=== PATIENT | male | born 1960 | race Caucasian/White ===

== ENCOUNTER 2018-02-11 17:56 | Inpatient (IN) | payer MEDICAID ==
[~2018-02-11] VITALS: Ht 177.8 cm; Wt 77.6 kg
[2018-02-11] MEDS ORDERED: SODIUM CHLORIDE 0.9% 1,000 ML IV ONE (18:23)
[2018-02-11 19:04] LABS: BASOPHILS % 0.3 % (0.0-2.0); EOSINOPHILS % 1.4 % (0.0-5.0); HEMATOCRIT. 33.1 % (42.0-52.0); HEMOGLOBIN. 11.5 g/dL (14.0-18.0); LYMPHOCYTES % 7.6 % (20.0-50.0); MEAN CORPUSCULAR HEMOGLOBIN 32.2 pg (28.0-32.0); MEAN PLATELET VOLUME 7.7 fl (7.4-10.4); MONOCYTES % 5.2 % (2.0-8.0); NEUTROPHILS % 85.5 % (40.0-76.0); PLATELET 304 x1000/uL (130-400); RED BLOOD CELL COUNT 3.56 mill/uL (4.7-6.1); RED CELL DISTRIBUTION WIDTH 13.7 % (11.6-14.6)
[2018-02-11 19:08] LABS: CHLORIDE 93 mEq/L (98-107)
[2018-02-11 19:12] LABS: ETHANOL BLOOD < 10 mg/dL; INR 1.1; PROTHROMBIN TIME 11.4 sec (9.4-11.6)
[2018-02-11] MEDS ORDERED: KCL 20MEQ/100ML PREMIX 100 ML IV ONE (19:30)
[2018-02-11] MEDS ORDERED: POTASSIUM CHLORIDE 20MEQ TABLET SR PO ONE (19:30)
[2018-02-11] MEDS ORDERED: ACETAMINOPHEN 325MG TABLET PO PRN (21:30)
[2018-02-11] MEDS ORDERED: DOCUSATE SODIUM 100MG CAPSULE PO PRN (21:30)
[2018-02-11] MEDS ORDERED: ONDANSETRON HCL 4MG/2ML VIAL IV PRN (21:30)
[2018-02-11] MEDS ORDERED: IPRATROPIUM/ALBUTEROL 0.5-3(2.5)MG/3ML NEB INH PRN (21:30)
[2018-02-11] MEDS ORDERED: CEFTRIAXONE 1 G PREMIX 50 ML IV SCH (21:30)
[2018-02-11] MEDS ORDERED: MAGNESIUM/ALUMINUM HYDROXIDE/SIMETHICONE 30ML UDC PO PRN (21:30)
[2018-02-11 22:38] VITALS: BP 164/100
[2018-02-12] VITALS (31 sets, daily range): BP systolic 99–176; BP diastolic 65–126
[2018-02-12] MEDS ORDERED: CEFTRIAXONE 1 G PREMIX 50 ML IV SCH
[2018-02-12 00:13] LABS: CHLORIDE 97 mEq/L (98-107)
[2018-02-12 00:24] LABS: CREATINE KINASE MB FRACTION 17.4 ng/mL (0.5-3.6)
[2018-02-12 00:34] LABS: CREATINE KINASE 3051 IU/L (39-308)
[2018-02-12] MEDS ORDERED: BENZ0.5T3 PO (01:48)
[2018-02-12] MEDS ORDERED: PANT40TA4 PO (01:48)
[2018-02-12] MEDS ORDERED: DIVA500T PO ×2 (01:48)
[2018-02-12] MEDS ORDERED: HALO5TAB PO (01:48)
[2018-02-12] MEDS ORDERED: RISP3TAB13 PO ×2 (01:48)
[2018-02-12] MEDS ORDERED: HALO10TA13 PO (01:48)
[2018-02-12] MEDS ORDERED: ALBU18HF2 IH (01:48)
[2018-02-12] MEDS ORDERED: BENZ1TAB7 PO (01:48)
[2018-02-12] MEDS ORDERED: TIOT18CA3 IH (01:48)
[2018-02-12] MEDS ORDERED: FERR325T6 PO (01:48)
[2018-02-12] MEDS: SODIUM CHLORIDE 0.9% 1,000 ML IV SCH ×2 (01:50→11:15)
[2018-02-12] MEDS ORDERED: POTASSIUM CHLORIDE 20MEQ TABLET SR PO SCH (05:46)
[2018-02-12 06:34] LABS: BASOPHILS % 0.3 % (0.0-2.0); HEMATOCRIT. 35.8 % (42.0-52.0); HEMOGLOBIN. 12.5 g/dL (14.0-18.0); LYMPHOCYTES % 9.8 % (20.0-50.0); MEAN CORPUSCULAR HEMOGLOBIN 32.4 pg (28.0-32.0); MEAN CORPUSCULAR VOLUME 92.9 fL (80.0-94.0); MEAN PLATELET VOLUME 8.4 fl (7.4-10.4); MONOCYTES % 8.4 % (2.0-8.0); NEUTROPHILS % 80.5 % (40.0-76.0); PLATELET 327 x1000/uL (130-400); RED BLOOD CELL COUNT 3.85 mill/uL (4.7-6.1); RED CELL DISTRIBUTION WIDTH 13.6 % (11.6-14.6)
[2018-02-12 06:56] LABS: CHLORIDE 101 mEq/L (98-107)
[2018-02-12 07:04] LABS: LDL CHOLESTEROL 39 mg/dL (5-100)
[2018-02-12 07:06] LABS: HDL CHOLESTEROL 76 mg/dL (40-59)
[2018-02-12 07:08] LABS: CREATINE KINASE MB FRACTION 16.4 ng/mL (0.5-3.6)
[2018-02-12 07:17] LABS: CREATINE KINASE 2998 IU/L (39-308)
[2018-02-12 07:25] LABS: BG BASE EXCESS -2.5 mmol/L (-2.0-2.0); BG CARBOXYHEMOGLOBIN 1.7 % (0.5-1.5); BG HCO3 ACT 22.9 mmol/L (22.0-26.0); BG METHEMOGLOBIN 0.3 % (0.0-1.5); BG PCO2 41.8 mmHg (35.0-45.0); BG PH 7.357 (7.350-7.450); BG PO2 163.2 mmHg (75.0-100.0); BG SAMPLE SITE RIGHT BRACHIAL; BG TOTAL HEMOGLOBIN 13.5 g/dL (12.0-18.0); BG VENT MODE MASK - SIMPLE
[2018-02-12] MEDS ORDERED: DIVALPROEX SODIUM 500MG ER TABLET PO SCH (09:00)
[2018-02-12] MEDS ORDERED: PIPERACILLIN/TAZ 3.375G PREMIX 50 ML IV SCH (09:30)
[2018-02-12] MEDS: AZITHROMYCIN 500 MG TABLET PO SCH (09:34)
[2018-02-12] MEDS: ENOXAPARIN 40MG/0.4ML SYR SUBCUT SCH (09:34)
[2018-02-12] MEDS: CLONIDINE 0.1MG TABLET PO PRN (09:40)
[2018-02-12] MEDS: LORAZEPAM 2MG/ML CPJ IV PRN (11:41)
[2018-02-12] MEDS: PANTOPRAZOLE SODIUM 40 MG/VIAL IV SCH (12:45)
[2018-02-12] MEDS: PIPERACILLIN/TAZ 3.375G PREMIX 50 ML IV SCH ×2 (12:45→18:42)
[2018-02-12] MEDS: NICOTINE 14MG PATCH TD SCH (12:45)
[2018-02-12] MEDS: IPRATROPIUM/ALBUTEROL 0.5-3(2.5)MG/3ML NEB HHN SCH ×2 (14:25→20:20)
[2018-02-12] MEDS: DEXT 5%/0.45% NACL KCL 20MEQ/L 1,000 ML IV SCH (16:30)
[2018-02-12] MEDS: ZONISAMIDE 100MG CAPSULE PO SCH (18:00)
[2018-02-12] MEDS ORDERED: KCL 20MEQ/100ML PREMIX 100 ML IV NR (18:00)
[2018-02-12] MEDS: DIVALPROEX SODIUM 500MG DR TABLET PO SCH (18:42)
[2018-02-12] MEDS ORDERED: DIVALPROEX SODIUM 500MG DR TABLET PO SCH (21:00)
[2018-02-12 21:03] LABS: VITAMIN B12 SERUM 500 pg/mL (211-911)
[2018-02-12 21:04] LABS: FOLIC ACID (FOLATE) SERUM > 20.00 ng/mL (>5.38)
[2018-02-13] VITALS (37 sets, daily range): BP systolic 138–185; BP diastolic 84–118
[2018-02-13] MEDS: PIPERACILLIN/TAZ 3.375G PREMIX 50 ML IV SCH ×4 (00:43→17:25)
[2018-02-13] MEDS: CLONIDINE 0.1MG TABLET PO PRN (01:02)
[2018-02-13] MEDS: IPRATROPIUM/ALBUTEROL 0.5-3(2.5)MG/3ML NEB HHN SCH ×4 (02:24→21:13)
[2018-02-13] MEDS: DEXT 5%/0.45% NACL KCL 20MEQ/L 1,000 ML IV SCH ×3 (02:37→23:25)
[2018-02-13 06:11] LABS: BASOPHILS % 0.8 % (0.0-2.0); EOSINOPHILS % 4.4 % (0.0-5.0); HEMATOCRIT. 35.7 % (42.0-52.0); HEMOGLOBIN. 12.2 g/dL (14.0-18.0); LYMPHOCYTES % 23.1 % (20.0-50.0); MEAN CORPUSCULAR VOLUME 93.8 fL (80.0-94.0); MEAN PLATELET VOLUME 8.5 fl (7.4-10.4); MONOCYTES % 8.4 % (2.0-8.0); NEUTROPHILS % 63.3 % (40.0-76.0); PLATELET 324 x1000/uL (130-400); RED CELL DISTRIBUTION WIDTH 13.6 % (11.6-14.6)
[2018-02-13 06:18] LABS: AMMONIA 55 uMol/L (<32)
[2018-02-13 06:20] LABS: CHLORIDE 99 mEq/L (98-107)
[2018-02-13] MEDS: HYDRALAZINE 20MG/ML VIAL IV PRN ×2 (06:22→17:42)
[2018-02-13 06:27] LABS: PHOSPHORUS 3.1 mg/dL (2.5-4.9)
[2018-02-13 06:37] LABS: CREATINE KINASE MB FRACTION 6.9 ng/mL (0.5-3.6)
[2018-02-13 06:45] LABS: CREATINE KINASE 1037 IU/L (39-308)
[2018-02-13] MEDS ORDERED: POTASSIUM CHLORIDE 20MEQ TABLET SR PO NR (07:45)
[2018-02-13] MEDS ORDERED: LACTULOSE 20G/30ML UDC PO NR (08:45)
[2018-02-13] MEDS ORDERED: DIVALPROEX SODIUM 500MG DR TABLET PO SCH (09:00)
[2018-02-13] MEDS: ENOXAPARIN 40MG/0.4ML SYR SUBCUT SCH (09:19)
[2018-02-13] MEDS: PANTOPRAZOLE SODIUM 40 MG/VIAL IV SCH (09:19)
[2018-02-13] MEDS: ZONISAMIDE 100MG CAPSULE PO SCH (09:20)
[2018-02-13] MEDS: AZITHROMYCIN 500 MG TABLET PO SCH (09:20)
[2018-02-13] MEDS: NICOTINE 14MG PATCH TD SCH (09:20)
[2018-02-13] MEDS: DIVALPROEX SODIUM 500MG DR TABLET PO SCH ×3 (09:20→17:25)
[2018-02-13] MEDS ORDERED: CLONIDINE 0.1MG TABLET PO PRN (11:00)
[2018-02-13] MEDS: LOSARTAN POTASSIUM 25 MG TABLET PO SCH ×2 (11:57→20:31)
[2018-02-13] MEDS: AMLODIPINE 5MG TABLET PO SCH ×2 (11:57→20:31)
[2018-02-13 17:29] LABS: CLARITY URINE CLEAR (CLEAR); COLOR URINE YELLOW (YELLOW); KETONES URINE NEGATIVE (NEGATIVE); LEUKOCYTE ESTERASE URINE NEGATIVE (NEGATIVE); NITRITE URINE NEGATIVE (NEGATIVE); OCCULT BLOOD URINE NEGATIVE (NEGATIVE); PH URINE 7.5 (4.5-8.0); PROTEIN URINE NEGATIVE (NEGATIVE); SPECIFIC GRAVITY URINE 1.008 (1.005-1.030); UROBILINOGEN URINE 0.2 E.U./dL (0.2-1.0)
[2018-02-13 17:51] LABS: METHADONE URINE SCREEN NEGATIVE (NEGATIVE)
[2018-02-13 17:54] LABS: *AMPHETAMINES SCREEN URINE NEGATIVE (NEGATIVE); *BARBITURATES SCREEN URINE NEGATIVE (NEGATIVE); *BENZODIAZEPINES SCREEN URINE NEGATIVE (NEGATIVE); *COCAINE SCREEN URINE NEGATIVE (NEGATIVE)
[2018-02-13 17:55] LABS: OPIATES URINE SCREEN NEGATIVE (NEGATIVE); PHENCYCLIDINE URINE SCREEN NEGATIVE (NEGATIVE)
[2018-02-13 17:56] LABS: CANNABINOID URINE SCREEN NEGATIVE (NEGATIVE)
[2018-02-14] VITALS (8 sets, daily range): BP systolic 107–162; BP diastolic 49–96
[2018-02-14] MEDS: IPRATROPIUM/ALBUTEROL 0.5-3(2.5)MG/3ML NEB HHN SCH ×4 (01:30→20:41)
[2018-02-14] MEDS: PIPERACILLIN/TAZ 3.375G PREMIX 50 ML IV SCH ×4 (06:37→17:49)
[2018-02-14 06:58] LABS: AMMONIA 52 uMol/L (<32)
[2018-02-14 07:17] LABS: EOSINOPHILS % 3.8 % (0.0-5.0); HEMATOCRIT. 38.3 % (42.0-52.0); HEMOGLOBIN. 13.1 g/dL (14.0-18.0); LYMPHOCYTES % 22.9 % (20.0-50.0); MEAN CORPUSCULAR HEMOGLOBIN 32.1 pg (28.0-32.0); MEAN CORPUSCULAR VOLUME 93.5 fL (80.0-94.0); MEAN PLATELET VOLUME 8.4 fl (7.4-10.4); MONOCYTES % 8.5 % (2.0-8.0); NEUTROPHILS % 63.8 % (40.0-76.0); PLATELET 347 x1000/uL (130-400); RED CELL DISTRIBUTION WIDTH 13.9 % (11.6-14.6)
[2018-02-14 07:29] LABS: CHLORIDE 94 mEq/L (98-107)
[2018-02-14 07:44] LABS: CREATINE KINASE 730 IU/L (39-308)
[2018-02-14 07:47] LABS: CREATINE KINASE MB FRACTION 6.9 ng/mL (0.5-3.6)
[2018-02-14] MEDS: PANTOPRAZOLE SODIUM 40 MG/VIAL IV SCH (08:44)
[2018-02-14] MEDS: ENOXAPARIN 40MG/0.4ML SYR SUBCUT SCH (08:44)
[2018-02-14] MEDS: AZITHROMYCIN 500 MG TABLET PO SCH (08:45)
[2018-02-14] MEDS: LOSARTAN POTASSIUM 25 MG TABLET PO SCH ×2 (08:45→21:00)
[2018-02-14] MEDS: DIVALPROEX SODIUM 500MG DR TABLET PO SCH ×3 (08:45→17:39)
[2018-02-14] MEDS: AMLODIPINE 5MG TABLET PO SCH ×2 (08:47→21:00)
[2018-02-14] MEDS: DEXT 5%/0.45% NACL KCL 20MEQ/L 1,000 ML IV SCH (08:47)
[2018-02-14] MEDS: NICOTINE 14MG PATCH TD SCH (08:47)
[2018-02-14] MEDS: ZONISAMIDE 100MG CAPSULE PO SCH (09:00)
[2018-02-14] MEDS ORDERED: POTASSIUM CHLORIDE 20MEQ TABLET SR PO NR (11:15)
[2018-02-14] MEDS: DEXT 5%/0.9% NACL KCL 20MEQ/L 1,000 ML IV SCH (23:35)
[2018-02-14] MEDS: LACTULOSE 20G/30ML UDC PO SCH (23:41)
[2018-02-15] VITALS (8 sets, daily range): BP systolic 130–159; BP diastolic 79–104
[2018-02-15] MEDS: PIPERACILLIN/TAZ 3.375G PREMIX 50 ML IV SCH ×4 (00:38→18:06)
[2018-02-15] MEDS: IPRATROPIUM/ALBUTEROL 0.5-3(2.5)MG/3ML NEB HHN SCH ×4 (01:51→20:45)
[2018-02-15] MEDS: LACTULOSE 20G/30ML UDC PO SCH ×3 (06:52→22:12)
[2018-02-15] MEDS: DEXT 5%/0.9% NACL KCL 20MEQ/L 1,000 ML IV SCH ×2 (09:00→16:37)
[2018-02-15] MEDS: NICOTINE 14MG PATCH TD SCH (09:09)
[2018-02-15] MEDS: ZONISAMIDE 100MG CAPSULE PO SCH (09:09)
[2018-02-15] MEDS: ENOXAPARIN 40MG/0.4ML SYR SUBCUT SCH (09:09)
[2018-02-15] MEDS: AZITHROMYCIN 500 MG TABLET PO SCH (09:10)
[2018-02-15] MEDS: LOSARTAN POTASSIUM 25 MG TABLET PO SCH (09:10)
[2018-02-15] MEDS: DIVALPROEX SODIUM 500MG DR TABLET PO SCH ×3 (09:10→16:48)
[2018-02-15] MEDS: AMLODIPINE 5MG TABLET PO SCH ×2 (09:10→22:13)
[2018-02-15] MEDS: PANTOPRAZOLE SODIUM 40 MG/VIAL IV SCH (09:11)
[2018-02-15] MEDS ORDERED: POTASSIUM CHLORIDE 20MEQ TABLET SR PO NR (10:45)
[2018-02-15 12:13] LABS: BASOPHILS % 0.6 % (0.0-2.0); EOSINOPHILS % 1.1 % (0.0-5.0); HEMATOCRIT. 37.5 % (42.0-52.0); HEMOGLOBIN. 12.9 g/dL (14.0-18.0); LYMPHOCYTES % 18.2 % (20.0-50.0); MEAN CORPUSCULAR HEMOGLOBIN 32.3 pg (28.0-32.0); MEAN CORPUSCULAR VOLUME 93.8 fL (80.0-94.0); MEAN PLATELET VOLUME 8.1 fl (7.4-10.4); MONOCYTES % 9.1 % (2.0-8.0); PLATELET 330 x1000/uL (130-400); RED BLOOD CELL COUNT 3.99 mill/uL (4.7-6.1); RED CELL DISTRIBUTION WIDTH 13.7 % (11.6-14.6)
[2018-02-15 12:24] LABS: CHLORIDE 96 mEq/L (98-107)
[2018-02-15 12:29] LABS: PHOSPHORUS 2.7 mg/dL (2.5-4.9)
[2018-02-15 12:30] LABS: AMMONIA 55 uMol/L (<32)
[2018-02-15] MEDS: LOSARTAN POTASSIUM 50 MG TABLET PO SCH (22:13)
[2018-02-15] MEDS ORDERED: MAGNESIUM 2 G PREMIX 50 ML IV NR (23:00)
[2018-02-16] VITALS: BP 85/74
[2018-02-16] MEDS: PIPERACILLIN/TAZ 3.375G PREMIX 50 ML IV SCH ×4 (00:29→18:08)
[2018-02-16] MEDS: LORAZEPAM 2MG/ML CPJ IV PRN (00:30)
[2018-02-16] MEDS: DEXT 5%/0.9% NACL KCL 20MEQ/L 1,000 ML IV SCH ×3 (00:30→21:33)
[2018-02-16] MEDS: LACTULOSE 20G/30ML UDC PO SCH ×4 (02:00→21:32)
[2018-02-16] MEDS: IPRATROPIUM/ALBUTEROL 0.5-3(2.5)MG/3ML NEB HHN SCH ×4 (02:12→20:48)
[2018-02-16 04:12] VITALS: BP 124/79
[2018-02-16 07:25] LABS: BASOPHILS % 0.8 % (0.0-2.0); EOSINOPHILS % 1.7 % (0.0-5.0); HEMATOCRIT. 37.2 % (42.0-52.0); HEMOGLOBIN. 12.9 g/dL (14.0-18.0); LYMPHOCYTES % 19.3 % (20.0-50.0); MEAN CORPUSCULAR HEMOGLOBIN 32.5 pg (28.0-32.0); MEAN CORPUSCULAR VOLUME 93.6 fL (80.0-94.0); MONOCYTES % 9.7 % (2.0-8.0); NEUTROPHILS % 68.5 % (40.0-76.0); PLATELET 322 x1000/uL (130-400); RED BLOOD CELL COUNT 3.97 mill/uL (4.7-6.1); RED CELL DISTRIBUTION WIDTH 13.5 % (11.6-14.6)
[2018-02-16 07:30] LABS: AMMONIA 51 uMol/L (<32)
[2018-02-16 08:00] VITALS: BP 109/75
[2018-02-16 08:21] LABS: CHLORIDE 101 mEq/L (98-107)
[2018-02-16 08:57] LABS: PHOSPHORUS 3.5 mg/dL (2.5-4.9)
[2018-02-16] MEDS: LOSARTAN POTASSIUM 50 MG TABLET PO SCH ×2 (09:00→21:32)
[2018-02-16] MEDS: AMLODIPINE 5MG TABLET PO SCH ×2 (09:00→21:32)
[2018-02-16] MEDS: DIVALPROEX SODIUM 500MG DR TABLET PO SCH ×3 (10:06→18:08)
[2018-02-16] MEDS: ZONISAMIDE 100MG CAPSULE PO SCH (10:06)
[2018-02-16] MEDS: NICOTINE 14MG PATCH TD SCH (10:07)
[2018-02-16] MEDS: ENOXAPARIN 40MG/0.4ML SYR SUBCUT SCH (10:07)
[2018-02-16] MEDS: PANTOPRAZOLE SODIUM 40 MG/VIAL IV SCH (10:07)
[2018-02-16] MEDS: AZITHROMYCIN 500 MG TABLET PO SCH (10:10)
[2018-02-16 12:00] VITALS: BP 127/89
[2018-02-16 16:00] VITALS: BP 146/91
[2018-02-16 20:00] VITALS: BP 156/100
[2018-02-17] VITALS: BP 152/93
[2018-02-17] MEDS: PIPERACILLIN/TAZ 3.375G PREMIX 50 ML IV SCH ×3 (00:32→12:38)
[2018-02-17] MEDS: LACTULOSE 20G/30ML UDC PO SCH ×3 (01:14→13:20)
[2018-02-17] MEDS: IPRATROPIUM/ALBUTEROL 0.5-3(2.5)MG/3ML NEB HHN SCH ×3 (01:42→14:58)
[2018-02-17 04:00] VITALS: BP 144/99
[2018-02-17 07:17] LABS: BASOPHILS % 1.1 % (0.0-2.0); EOSINOPHILS % 7.2 % (0.0-5.0); HEMATOCRIT. 40.1 % (42.0-52.0); HEMOGLOBIN. 13.5 g/dL (14.0-18.0); LYMPHOCYTES % 19.5 % (20.0-50.0); MEAN CORPUSCULAR HEMOGLOBIN 31.8 pg (28.0-32.0); MEAN CORPUSCULAR VOLUME 94.6 fL (80.0-94.0); MEAN PLATELET VOLUME 8.2 fl (7.4-10.4); MONOCYTES % 11.3 % (2.0-8.0); NEUTROPHILS % 60.9 % (40.0-76.0); PLATELET 354 x1000/uL (130-400); RED BLOOD CELL COUNT 4.23 mill/uL (4.7-6.1); RED CELL DISTRIBUTION WIDTH 13.7 % (11.6-14.6)
[2018-02-17 07:55] VITALS: BP 146/95
[2018-02-17 08:00] LABS: CHLORIDE 105 mEq/L (98-107)
[2018-02-17] MEDS: AMLODIPINE 5MG TABLET PO SCH (09:08)
[2018-02-17] MEDS: ZONISAMIDE 100MG CAPSULE PO SCH (09:08)
[2018-02-17] MEDS: LOSARTAN POTASSIUM 50 MG TABLET PO SCH (09:08)
[2018-02-17] MEDS: DIVALPROEX SODIUM 500MG DR TABLET PO SCH ×2 (09:08→12:38)
[2018-02-17] MEDS: PANTOPRAZOLE SODIUM 40 MG/VIAL IV SCH (09:08)
[2018-02-17] MEDS: AZITHROMYCIN 500 MG TABLET PO SCH (09:08)
[2018-02-17] MEDS: ENOXAPARIN 40MG/0.4ML SYR SUBCUT SCH (09:09)
[2018-02-17] MEDS: NICOTINE 14MG PATCH TD SCH (09:09)
[2018-02-17] MEDS: DEXT 5%/0.9% NACL KCL 20MEQ/L 1,000 ML IV SCH (09:15)
[2018-02-17 11:49] VITALS: BP 137/92
[2018-02-17 15:18] VITALS: BP 148/97
[2018-02-17 15:56] VITALS: BP 148/97
[2018-02-18] MEDS ORDERED: ZONISAMIDE 100MG CAPSULE PO SCH (09:00)
[2018-02-19] MEDS ORDERED: VALP250C PO (14:51)
[2018-02-19] MEDS ORDERED: ZONI100C34 PO (14:51)
[2018-02-19] MEDS ORDERED: NICO-786 TD (14:51)
== END 2018-02-17 17:21 | disposition home or self-care (01) | DRG 720 ==
LOC: ER 20:05 → 5WST 20:21 → EDBEDREQ 20:23 → ENRESERV 20:51 → CVICU 02-12 03:33 → 6WST 02-13 18:30
PROVIDERS: ADMIT Internal Medicine; ATTEND Internal Medicine
DX: A41.9 Sepsis, unspecified organism (principal); I21.4 Non-ST elevation (NSTEMI) myocardial infarction; J96.00 Acute respiratory failure, unspecified whether with hypoxia or hypercapnia; J69.0 Pneumonitis due to inhalation of food and vomit; G92 Toxic encephalopathy; M62.82 Rhabdomyolysis; E83.51 Hypocalcemia; E44.0 Moderate protein-calorie malnutrition; E72.20 Disorder of urea cycle metabolism, unspecified; D64.9 Anemia, unspecified; E87.1 Hypo-osmolality and hyponatremia; E87.6 Hypokalemia; F10.10 Alcohol abuse, uncomplicated; F17.210 Nicotine dependence, cigarettes, uncomplicated; R74.0 Nonspecific elevation of levels of transaminase and lactic acid dehydrogenase [LDH]; F20.9 Schizophrenia, unspecified; G40.909 Epilepsy, unspecified, not intractable, without status epilepticus; I10 Essential (primary) hypertension; J44.0 Chronic obstructive pulmonary disease with (acute) lower respiratory infection; K21.9 Gastro-esophageal reflux disease without esophagitis; Z86.73 Personal history of transient ischemic attack (TIA), and cerebral infarction without residual deficits; Z79.899 Other long term (current) drug therapy; Z59.0 Homelessness; Z71.6 Tobacco abuse counseling; Z68.24 Body mass index [BMI] 24.0-24.9, adult
CPT/HCPCS: 36415; 36600; 70450; 70551; 71045; 80048; 80053; 80061; 80165; 80185; 80305; 80307; 80329; 81003; 82140; 82375; 82550; 82553; 82607; 82746; 82805; 82962; 83036; 83735; 83930; 84100; 84443; 84481; 84484; 85025; 85379; 85610; 85730; 87040; 93005; 93306; 93970; 94640; 96360; 96361; 97162; 97166; 99291; A6261; C1893; C9113; G0482; J0360; J0696; J1650; J2060; J2543; J3475; J3480; J7030; J7620

== ENCOUNTER 2020-03-12 18:57 | Emergency (ER) | payer OTHER ==
[~2020-03-12] VITALS: Ht 177.8 cm; Wt 74.0 kg
[~2020-03-12 18:57] MED LIST: ALBU18HF2 IH; BENZ0.5T43 PO; BENZ1TAB7 PO; DIVA-75 PO; LEVO500T89 MT; NICO-786 TD; PANT40TA4 PO; RISP3TAB13 PO; TIOT18CA3 IH; VALP250C PO; ZONI100C34 PO
[2020-03-12 22:07] VITALS: BP 132/77
== END 2020-03-13 03:47 | disposition left against medical advice (07) ==
LOC: ER 18:57
DX: H10.89 Other conjunctivitis (principal); R51 Headache; J44.9 Chronic obstructive pulmonary disease, unspecified; I10 Essential (primary) hypertension; F20.9 Schizophrenia, unspecified; Z88.0 Allergy status to penicillin
CPT/HCPCS: 99283